=== PATIENT | female | born 1980 | race Caucasian/White ===

== ENCOUNTER → 2017-06-08 | Outpatient (CLI) | payer BC, OTHER ==
--- NOTE | 2017-06-08 19:14 | Diagnostic Imaging Report ---
EXAM: US NON OB PELVIS COMP/TRANSVAG. INDICATION: R10.2 ACUTE PELVIC PAIN, FEMALE. COMPARISON: None. FINDINGS: Normal echogenicity of the uterus with no focal mass. The uterus measures 6.6 x 4.5 x 4.1 cm. Normal echogenicity of the endometrium which measures 0.5 cm in thickness. The right ovary measures 3.4 x 2.6 x 2.5 cm. The left ovary measures 2.8 x 2.1 x 2.1 cm. There are normal-appearing follicles and flow by color Doppler within both ovaries. There is a simple-appearing cyst in the right ovary measuring 2.4 x 2.0 x 1.8 cm. There is a small amount of fluid within the adnexa bilaterally and dependently within the pelvis. IMPRESSION: 1. Simple-appearing cyst in the right ovary measuring up to 2.4 cm. 2. Small amount of simple-appearing fluid dependently in the pelvis and within the bilateral adnexa. Dictated by: Dictated on workstation # [id number]
== END ==
LOC: RAD 17:45
PROVIDERS: ATTEND Obstetrics & Gynecology
DX: N83.201 Unspecified ovarian cyst, right side (principal)
CPT/HCPCS: 76830; 76856

== ENCOUNTER → 2017-08-12 | Outpatient (CLI) | payer BC, OTHER ==
[~2017-08-12] MED LIST: ACHD5005 PO; BCP PO; CETI10TA17 PO; FOLI-74 PO; IBUP-1773 PO; LACT1CAP72 PO
--- NOTE | 2017-08-12 13:43 | Diagnostic Imaging Report ---
INDICATION: Lower back pain with radiation into lower extremities. COMPARISON: None. FINDINGS: Frontal and lateral views of the lumbar spine were obtained. Alignment and vertebral heights are maintained. There is no fracture or destructive process. Minimal degenerative change is noted with disc space narrowing at the L5-S1 level. Limited views of the abdomen demonstrate nonobstructive bowel gas pattern. IMPRESSION: 1. No acute fracture or dislocation of the lumbar spine. 2. Mild degenerative changes greatest at the L5-S1 level. Dictated by: Dictated on workstation # [id number]
--- NOTE | 2017-08-12 13:51 | Diagnostic Imaging Report ---
INDICATION: Back and pelvic pain with radiation to the legs. COMPARISON: None. FINDINGS: A single AP view of the pelvis was performed. There is no radiographic evidence of acute fracture or dislocation. Pubic symphysis is within normal limits. SI joints are symmetric. Proximal femurs are intact, bilaterally. The femoro-acetabular joint spaces appear maintained on this single frontal view. Remainder of the bony pelvis is intact as well. No unexpected radiopaque foreign bodies are seen. Included small bowel loops are nondistended. IMPRESSION: 1. No radiographic evidence of acute fracture or dislocation of the bony pelvis. Dictated by: Dictated on workstation # [id number]
== END ==
LOC: RAD 12:22
PROVIDERS: ATTEND Chiropractor
DX: M47.27 Other spondylosis with radiculopathy, lumbosacral region (principal)
CPT/HCPCS: 72100; 72170

== ENCOUNTER 2017-08-18 05:36 | Outpatient (CLI) | payer BC, OTHER ==
[~2017-08-18] VITALS: Ht 165.1 cm; Wt 68.0 kg
[2017-08-19] MEDS ORDERED: CETI10TA17 PO (10:28)
[2017-08-19] MEDS ORDERED: LACT1CAP72 PO (10:28)
[2017-08-19] MEDS ORDERED: BCP PO (10:28)
[2017-08-19] MEDS ORDERED: FOLI-74 PO (10:28)
[2017-08-20] MEDS ORDERED: ACHD5005 PO (07:15)
[2017-08-20] MEDS ORDERED: IBUP-1773 PO (07:16)
== END 2017-08-18 17:45 ==
LOC: PREOP 05:36
PROVIDERS: ATTEND Obstetrics & Gynecology
DX: Z01.818 Encounter for other preprocedural examination (principal); N83.209 Unspecified ovarian cyst, unspecified side; R10.2 Pelvic and perineal pain

== ENCOUNTER → 2017-08-19 | Outpatient (CLI) | payer BC, OTHER ==
--- NOTE | 2017-08-19 12:53 | Diagnostic Imaging Report ---
PROCEDURE: CT abdomen and pelvis without contrast. TECHNIQUE: Multiple contiguous axial images were obtained through the abdomen and pelvis without the use of intravenous contrast. INDICATION: Bilateral flank pain. COMPARISON: None available. FINDINGS: Evaluation of the abdominal viscera is mildly limited without contrast. Lower chest: The lung bases are clear. No pericardial or pleural effusion. Peritoneum: Trace free simple fluid in the pelvis is likely physiologic in a female this age. No free intraperitoneal air. Liver and biliary system: Unenhanced liver is normal. The gallbladder is normal. No biliary duct dilation. Spleen and Pancreas: Spleen is normal. Unenhanced pancreas is grossly normal. Adrenals: Normal. tract: No renal or ureteral calculi. No obstructive uropathy. Uterus and ovaries are physiologic in appearance. Subcentimeter follicles are present in both ovaries. GI tract: Stomach is decompressed. No bowel obstruction. No pericolonic inflammatory changes. Normal appendix. Vasculature and Lymph nodes: Normal caliber aorta. No abdominal or pelvic lymphadenopathy. Musculoskeletal: No concerning osseous lesion. Degenerative changes at L5-S1 include Schmorl node deformity. IMPRESSION: 1. No urinary tract calculi or obstructive uropathy. 2. No bowel obstruction. 3. Physiologic appearance of the uterus and ovaries. Trace free pelvic fluid is likely physiologic in a female this age. Dictated by: Dictated on workstation # [id number]
== END ==
LOC: RAD 12:16
PROVIDERS: ATTEND Urology
DX: R10.9 Unspecified abdominal pain (principal)
CPT/HCPCS: 74176

== ENCOUNTER 2017-08-20 06:09 | Day surgery (SDC) | payer BC, OTHER ==
[~2017-08-20] VITALS: Ht 165.1 cm; Wt 68.0 kg
[~2017-08-20 06:09] MED LIST changes: -ACHD5005 PO; -IBUP-1773 PO
--- OUTSIDE RECORDS SUMMARY | 2017-08-20 06:13 | XMS REPORT | Continuity of Care Document ---
Author Author [facility] Organization [facility] Address Unknown Phone Unavailable Allergies Active Description Code Type Severity Reaction Onset Reported/Identified Relationship to Patient Clinical Status Yes NKANo Known Allergies NKA Miscellaneous Allergy Unknown N/A 10/28/2006 Medications There is no data. Problems Date Dx Coded Attending Type Code Diagnosis Diagnosed By 09/30/2009 Ot 650 09/30/2009 Ot V06.1 09/30/2009 Ot V27.0 08/06/2014 JAZZMINE WHITTEN, ANTONIO Ndiaye Ot 729.81 SWELLING OF LIMB 08/06/2014 JAZZMINE WHITTEN, ANTONIO Ndiaye Ot 782.3 EDEMA 06/09/2017 FENECH DO, RANDY S Ot N83.201 UNSPECIFIED OVARIAN CYST, RIGHT SIDE 06/09/2017 FENECH DO, RANDY S Ot N83.201 UNSPECIFIED OVARIAN CYST, RIGHT SIDE 06/09/2017 FENECH DO, RANDY S Ot N83.201 UNSPECIFIED OVARIAN CYST, RIGHT SIDE 06/24/2017 FENECH DO, RANDY S Ot N83.201 UNSPECIFIED OVARIAN CYST, RIGHT SIDE 08/12/2017 FENECH DO, RANDY S Ot N83.201 UNSPECIFIED OVARIAN CYST, RIGHT SIDE 08/13/2017 JONATHAN FRANKLIN DC Ot M47.27 OTHER SPONDYLOSIS WITH RADICULOPATHY, ZOHREH Procedures There is no data. Results There is no data. Encounters ACCT No. Visit Date/Time Discharge Status Pt. Type Provider Facility Loc./Unit Complaint [id number] 08/12/2017 12:22:00 08/12/2017 23:59:59 CLS Outpatient JONATHAN FRANKLIN DC [facility] RAD M54.5,M54.17 [id number] 06/08/2017 17:45:00 06/08/2017 23:59:59 CLS Outpatient RANDY MCCAULEY DO S [facility] RAD R10.2 ACUTE PELVIC PAIN,FEMALE [id number] 08/06/2014 08:43:00 08/06/2014 10:28:00 DIS Emergency JAZZMINE WHITTEN, ANTONIO Ndiaye [facility] ER SWELLING HANDS/FEET [id number] 08/20/2017 07:30:00 PEN Preadmit RANDY MCCAULEY DO [facility] CHRONIC PELVIC PAIN,OVARIAN CYST [id number] 08/18/2017 05:36:00 ACT Outpatient RANDY MCCAULEY DO [facility] PREOP CHRONIC PELVIC PAIN,OVARIAN CYST [id number] 10/03/2014 13:07:00 Document Registration [id number] 10/03/2014 13:07:00 Document Registration [id number] 10/03/2014 13:07:00 Document Registration [id number] 09/28/2009 13:46:00 Document Registration
[2017-08-20 06:25] VITALS: BP 116/70
[2017-08-20] MEDS ORDERED: proPOfol 200 MG/20 ML (DIPRIVAN) VIAL IV ONE (06:29)
[2017-08-20] MEDS ORDERED: DEXAMETHASONE 10 MG/ML (DECADRON) 1 ML VIAL ONE (06:29)
[2017-08-20] MEDS ORDERED: MIDAZOLAM 2 MG/2 ML (VERSED) VIAL ONE (06:29)
[2017-08-20] MEDS ORDERED: LIDOCAINE PF 2% 5 ML (XYLOCAINE) VIAL ONE (06:29)
[2017-08-20] MEDS ORDERED: SEVOFLURANE (ULTANE) 15 ML INHAL SOLN ONE (06:29)
[2017-08-20] MEDS ORDERED: ONDANSETRON 4 MG/2 ML (SDV) Z0FRAN ONE (06:29)
[2017-08-20] MEDS ORDERED: fentaNYL INJECTION 100 MCG/2 ML AMP ONE (06:30)
[2017-08-20] MEDS ORDERED: ROCURONIUM 10 MG/ML 5 ML SYRINGE IV ONE (06:37)
[2017-08-20] MEDS: LACTATED RINGERS 1,000 ML IV PRN ×2 (07:00→08:00)
[2017-08-20] MEDS ORDERED: BUPIVACAINE 0.25% 30 ML (SENSORCAINE) VIAL ONE (07:02)
[2017-08-20] MEDS ORDERED: D5 LR IV SOLUTION 1,000 ML IV SCH (07:11)
--- NOTE | 2017-08-20 07:11 | Progress Note-Pre Operative ---
Pre-Operative Progress Note H&P Reviewed The H&P was reviewed, patient examined and no changes noted. Date Seen by Provider: August 20, 2017 Time Seen by Provider: 07:00 Date H&P Reviewed: August 20, 2017 Time H&P Reviewed: 07:00 Pre-Operative Diagnosis: CPP, Right ovarian cyst RANDY MCCAULEY DO August 20, 2017 7:11 am
--- NOTE | 2017-08-20 07:14 | Discharge Inst-Women's Service ---
Discharge Inst-Women's Serv Depart Medication/Instructions New, Converted or Re-Newed RX: RX on Chart Consults/Follow Up Additional Follow Up: Yes Orders/Referrals Dr. Truong in 2-3 weeks Activity Activity: Activity as Tolerated Driving Instructions: You May Drive (do not drive while taking hydrocodone) NO SMOKING: NO SMOKING Nothing Inside Vagina: No Douching Diet Discharge Diet: No Restrictions Symptoms to Report to : Bleeding Excessive, Pain Increased, Fever Over 101 Degrees F, Vaginal Bleeding Increase, Questions/Concerns For Any Problems or Questions: Contact Your Physician Skin/Wound Care Infection Signs and Symptoms: Increased Redness, Foul Odor of Wound, Increased Drainage, Skin Itchy or Has a Rash, Increased Swelling, Temperature Above 101 F Operative Area Clean and Dry: Keep Incision Clean/Dry Stitches/Rasheeda/Dermabond: Dermabond, Care of Stitches Bathing Instructions: RANDY العلي DO August 20, 2017 7:14 am
[2017-08-20] MEDS ORDERED: KETOROLAC 30 MG/ML VIAL IVP ONE (07:15)
[2017-08-20] MEDS ORDERED: ACHD5005 PO (07:15)
[2017-08-20] MEDS ORDERED: ONDANSETRON 4 MG/2 ML (SDV) Z0FRAN IVP PRN ×2 (07:15→08:30)
[2017-08-20] MEDS ORDERED: HYDROcodone/APAP 5 MG/325 MG (LORTAB) TAB PO PRN (07:15)
[2017-08-20] MEDS ORDERED: IBUP-1773 PO (07:16)
[2017-08-20 07:32] LABS: BASOPHILS % (AUTO) 1 % (0-10); EOSINOPHILS # (AUTO) 0.2 10^3/uL (0.0-0.3); EOSINOPHILS % (AUTO) 3 % (0-10); HEMATOCRIT 40 % (35-52); HEMOGLOBIN 13.5 G/DL (11.5-16.0); LYMPHOCYTES # (AUTO) 1.7 X 10^3 (1.0-4.0); LYMPHOCYTES % (AUTO) 33 % (12-44); MEAN CORPUSCULAR HEMOGLOBIN 28 PG (25-34); MEAN CORPUSCULAR HGB CONC 34 G/DL (32-36); MEAN CORPUSCULAR VOLUME 84 FL (80-99); MEAN PLATELET VOLUME 9.2 FL (7.4-10.4); MONOCYTES # (AUTO) 0.5 X 10^3 (0.0-1.0); MONOCYTES % (AUTO) 10 % (0-12); NEUTROPHILS # (AUTO) 2.7 X 10^3 (1.8-7.8); NEUTROPHILS % (AUTO) 53 % (42-75); PLATELET COUNT 295 10^3/uL (130-400); RED BLOOD COUNT 4.79 10^6/uL (4.35-5.85); RED CELL DISTRIBUTION WIDTH 13.1 % (10.0-14.5)
[2017-08-20] MEDS ORDERED: NEOSTIGMINE 1 MG/ML 5 ML SYRINGE ONE (07:54)
[2017-08-20] MEDS ORDERED: GLYCOPYRROLATE 0.2 MG/ML (ROBINUL) 2 ML VIAL ONE (07:54)
[2017-08-20] MEDS ORDERED: ALBUTEROL INHALER HFA (VENTOLIN HFA) 8 GM IH ONE ×6 (07:59→08:10)
[2017-08-20] MEDS ORDERED: morphine INJ 10 MG/ML 1ML (SYR OR VIAL) IVP PRN (08:30)
[2017-08-20] MEDS ORDERED: MEPERIDINE (DEMEROL) INJ 50 MG/ML IVP PRN (08:30)
[2017-08-20] MEDS ORDERED: morphine INJ 10 MG/ML 1ML (SYR OR VIAL) ONE (08:49)
[2017-08-20 09:10] VITALS: BP 125/86
[2017-08-20 09:11] VITALS: BP 125/86
--- NOTE | 2017-08-20 09:26 | Anesthesia-General Post-Op ---
General Patient Condition Mental Status/LOC: Same as Preop Cardiovascular: Satisfactory Nausea/Vomiting: Absent Respiratory: Satisfactory Pain: Controlled Complications: Absent Post Op Complications Complications None Follow Up Care/Instructions Patient Instructions None needed. Anesthesia/Patient Condition Patient Condition Patient is doing well, no complaints, stable vital signs, no apparent adverse anesthesia problems. No complications reported per nursing. MARJORIE INGRAM CRNA August 20, 2017 09:26
[2017-08-20 09:40] VITALS: BP 122/76
[2017-08-20 10:10] VITALS: BP 127/78
--- NOTE | 2017-08-20 14:13 | OPERATIVE REPORT ---
DATE OF SERVICE: 08/20/2017 PREOPERATIVE DIAGNOSES: 1. A 37-year-old female with chronic cyclic pelvic pain. 2. History of ovarian cyst. POSTOPERATIVE DIAGNOSES: 1. A 37-year-old female with chronic cyclic pelvic pain. 2. History of ovarian cyst. PROCEDURE: Diagnostic laparoscopy. SURGEON: Lopez Truong DO ANESTHESIA: General endotracheal. ESTIMATED BLOOD LOSS: Minimal. URINE OUTPUT: 50 mL. FLUIDS: 1000 mL lactated Ringer solution. FINDINGS: Grossly normal appearing uterus, bilateral fallopian tubes, ovaries, grossly normal appearing appendix and normal upper abdominal anatomy. SPECIMENS SENT: None. INDICATIONS FOR PROCEDURE: This is a 37-year-old female is a patient, who had self-consulted herself to my office for issues with recurring cyclic abdominal pain that seems to be debilitating at times. We underwent conservative measures as far as evaluation and initial management including oral contraceptive pills as I have an idea this may be ovarian mittelschmerz type of pain. However, after two months, the patient reports that the pain was getting significantly worse and was requesting to proceed with laparoscopy. She underwent urologic evaluation including cystoscopy and a CT scan, which was negative. I discussed with the patient the procedure in detail including the possibility of doing something intraoperatively, risk of bleeding, infection, damaging surrounding structures. Everything was covered in intricate detail and after all of her questions were answered, consent was obtained in the preoperative area. The patient was taken to the operating room. OPERATIVE REPORT IN DETAIL: Once in the operating room, general anesthesia was found to be adequate, placed in dorsal lithotomy position, prepped and draped in normal sterile fashion. Peña catheter was placed using sterile technique. Weighted speculum was inserted into the patient's vagina. Right angle retractor was used to visualize the cervix, which was grasped at 12 o'clock position using a long Allis clamp. I then gently sound the uterine cavity, which was found to be approximately 7 cm. I then placed a 7 cm depth Kronner uterine manipulator and deployed a balloon in the endometrial cavity. I then removed all other instruments from the patient's vagina, perform a change of gloves, taken my attention to the abdomen where infraumbilically i infiltrate the skin using 0.25% Marcaine to make a 5 mm incision and directed through this incision a Veress needle. Intraperitoneal placement was confirmed using a saline drop test. I then proceeded with insufflation using CO2 gas and opening pressure of 2 mmHg was noted to proceed with maximum pressure of 15 mmHg, at which point I removed the Veress needle and I introduced a 5 mm blunt trocar. Once this was in place, I am able to confirm a intraperitoneal placement using a laparoscope. I then had the patient placed in steep Trendelenburg, so I can visualize all the pelvic anatomy, which is described in my findings above. I take photodocumentation of all the traditional spots that would traditionally have endometriosis including the ovarian fossa, the uterosacral ligaments and the vesicouterine peritoneum and posterior cul-de-sac. After everything is visualized, I decided at that point not to do anything gynecologic. I proceeded with evaluating the upper abdominal anatomy including the appendix, which appears normal. After that is all found to be normal, I then decided that the procedure was complete. I released insufflation from the pneumoperitoneum and once this is adequately released, I removed this trocar. I closed the skin using 4-0 Monocryl in interrupted subcuticular stitch and Dermabond was used to seal the incision. A Band-Aid was placed over this. The Kronner uterine manipulator was removed. Peña catheter was removed. The patient tolerated the procedure well and sent to recovery area in stable condition. Lap and sponge were correct at the end of the procedure. Instrument count was correct as well. Job ID: [id number] DocumentID: [id number] Dictated Date: 08/20/2017 08:52:47 Channel Lip Stiffener Insoles Date: 08/20/2017 14:12:40 Dictated By: DO MALA BIANCHI
== END 2017-08-20 10:10 | disposition home or self-care (01) ==
LOC: SDC 06:09
PROVIDERS: ATTEND Obstetrics & Gynecology
DX: R10.2 Pelvic and perineal pain (principal); Z87.42 Personal history of other diseases of the female genital tract
CPT/HCPCS: 36415; 84703; 85025; 86850; 86900; 86901; 87081; 94664

== ENCOUNTER 2018-04-02 10:04 | Outpatient (RCR) | payer BC, OTHER ==
[~2018-04-02 10:04] MED LIST changes: +ACHD5005 PO; +IBUP-1773 PO
== END 2018-05-04 13:50 | disposition home or self-care (01) ==
PROVIDERS: ATTEND Family Medicine
DX: M99.04 Segmental and somatic dysfunction of sacral region (principal); R10.2 Pelvic and perineal pain

== ENCOUNTER 2019-02-21 09:07 | Outpatient (RCR) | payer BC, OTHER | END 2019-04-25 | disposition home or self-care (01) | PROVIDERS: ATTEND Physical Therapist | DX: M54.5 Low back pain (principal); R10.2 Pelvic and perineal pain ==

== ENCOUNTER 2020-02-21 08:24 | Outpatient (RCR) | payer BC, OTHER | END 2020-05-15 | disposition home or self-care (01) | PROVIDERS: ATTEND Physical Therapist | DX: M54.5 Low back pain (principal) ==

== ENCOUNTER → 2022-02-20 | Outpatient (CLI) | payer BC, OTHER ==
--- NOTE | 2022-02-20 18:33 | Diagnostic Imaging Report ---
INDICATION: Routine screening. COMPARISON: No prior mammograms are available for comparison. This is a baseline study. EXAMINATION: 2D and 3D bilateral screening mammography was performed with CAD. The current study was also evaluated with a Computer Aided Detection (CAD) system. FINDINGS: Scattered fibroglandular densities are identified, bilaterally. No mass or malignant-appearing microcalcifications are seen. Axillae are unremarkable. IMPRESSION: No mammographic features suspicious for malignancy are identified. ACR BI-RADS Category 1: Negative. Result letter will be mailed to the patient. Note: At least 10% of breast cancer is not imaged by mammography. Dictated by: Dictated on workstation # [id number]
== END ==
LOC: RAD 10:06
PROVIDERS: ATTEND Obstetrics & Gynecology
DX: Z12.31 Encounter for screening mammogram for malignant neoplasm of breast (principal)
CPT/HCPCS: 77063; 77067